=== PATIENT | female | born 1950 | race Caucasian/White ===

== ENCOUNTER 2017-02-24 15:47 | Inpatient (IN) | payer MEDICARE, MEDICAID ==
[~2017-02-24] VITALS: Ht 170.2 cm; Wt 68.0 kg
[~2017-02-24 15:47] MED LIST: BUSP5TAB51 PO; CYCL5TAB PO; DULO60CA PO; ETOD400T PO; FURO40TA4 PO; LUBI24CA6 PO; NOR10T PO; PANT40TA2 PO; SENN-62 PO
[2017-02-24] MEDS ORDERED: SODIUM CHLORIDE 0.9% 1,000 ML IV ONE ×2 (17:11→23:15)
[2017-02-24] MEDS ORDERED: PROMETHAZINE HCL 25 MG/ML 1ML IV ONE (17:15)
[2017-02-24] MEDS ORDERED: MORPHINE SULFATE 4 MG/ML SYRG IV ONE (17:15)
[2017-02-24 17:19] LABS: Basophils # (auto) 0 uL; CONDITION Y; DEFINITIVE SEE PRINTOUT; Eosinophils # (auto) 0 uL; Eosinophils % (auto) 0.3 % (0.0-7.0); Hematocrit 24.6 % (36.0-46.0); Hemoglobin 8.4 g/dL (12.2-16.2); Lymphocytes # (auto) 0.8 uL; Lymphocytes % (auto) 5.6 % (10.0-50.0); Mean Corpuscular Hemoglobin 32.2 pg (28.0-32.0); Mean Corpuscular Hgb Conc. 34.2 g/dL (32.0-36.0); Mean Corpuscular Volume 94.2 fL (80.0-100.0); Mean Platelet Volume 10.2 fL (7.4-10.4); Monocytes # (auto) 1.6 uL; Monocytes % (auto) 10.6 % (0.0-12.0); Neutrophils # (auto) 12.3 uL; Neutrophils % (auto) 83.5 % (37.0-80.0); Platelet Count (auto) 123 10^3/uL (140-450); Red Cell Distribution Width 18.4 % (11.6-16.0); White Blood Cell 14.7 10^3/uL (4.4-10.8)
[2017-02-24 17:44] LABS: Albumin 2.4 g/dL (3.4-5.0); BUN/Creatinine Ratio 29.2; Bilirubin, Total 0.8 mg/dL (0.2-1.0); Potassium 4.7 mmol/L (3.5-5.1); Total Protein 5.6 g/dL (6.4-8.2)
[2017-02-24 19:53] LABS: Urine Bilirubin Negative (Negative); Urine Blood TRACE /uL (Negative); Urine Color Yellow (Yellow); Urine Glucose Normal (Normal); Urine Ketone Negative (Negative); Urine Nitrite Negative (Negative); Urine RBC 1 /hpf (0 - 4); Urine Urobilinogen Normal (Negative); Urine pH 6.5 (5.0-8.0)
[2017-02-24] MEDS ORDERED: PANTOPRAZOLE 80 MG in SODIUM CHL 0.9% 60 ML IV ONE (23:15)
[2017-02-24] MEDS ORDERED: ONDANSETRON HCL 4 MG/2 ML VIAL IV ONE ×2 (23:15)
[2017-02-24] MEDS ORDERED: PANTOPRAZOLE 40 MG/10 ML VIAL IV ONE (23:16)
[2017-02-24 23:20] LABS: Hematocrit 20.4 % (36.0-46.0)
[2017-02-24] MEDS ORDERED: MIDAZOLAM DRIP 50 mg/50mL 50 ML IV ONE (23:22)
[2017-02-24] MEDS ORDERED: KETAMINE HCL 0 ML ONE (23:24)
[2017-02-24 23:28] LABS: Hemoglobin 6.6 g/dL (12.2-16.2)
[2017-02-25] VITALS (13 sets, daily range): BP systolic 53–136; BP diastolic 21–108
[2017-02-25] MEDS ORDERED: MIDAZOLAM DRIP 50 mg/50mL 50 ML IV SCH ×2 (00:14→00:21)
[2017-02-25] MEDS ORDERED: PROPOFOL 100 ML IV SCH (00:21)
[2017-02-25] MEDS ORDERED: NOREPINEPHRINE BITARTRATE 250 ML IV SCH ×2 (00:21→03:15)
[2017-02-25] MEDS ORDERED: MORPHINE SULF INJ 2 MG/ML SYRINGE 1ML IV PRN ×2 (00:30)
[2017-02-25] MEDS ORDERED: HYDROcodone-ACET 5/325MG TAB PO PRN (00:30)
[2017-02-25] MEDS ORDERED: LORazepam 2MG/ML-1ML VIAL IV PRN (00:30)
[2017-02-25] MEDS ORDERED: ACETAMINOPHEN 500 MG TAB PO PRN (00:30)
[2017-02-25] MEDS ORDERED: ONDANSETRON HCL 4 MG/2 ML VIAL IV PRN (00:30)
[2017-02-25] MEDS ORDERED: NITROGLYCERIN 0.4 MG SL TAB SL PRN (00:30)
[2017-02-25] MEDS ORDERED: PIPERACILLIN-TAZOB 3.375GM 100 ML IV ONE (00:45)
[2017-02-25] MEDS ORDERED: SODIUM CHLORIDE 0.9% 1,000 ML IV SCH ×3 (00:45→03:45)
[2017-02-25] MEDS ORDERED: NOREPINEPHRINE BITARTRATE 250 ML IV ONE ×2 (00:53→04:16)
[2017-02-25] MEDS ORDERED: ALBUTEROL SULF 2.5 MG/0.5ML(0.5%) NEB SOLN NEB PRN ×2 (02:00)
[2017-02-25] MEDS ORDERED: DOPamine 1600MCG/ML 250 ML IV SCH (03:15)
[2017-02-25] MEDS ORDERED: PHENYLEPHRINE IV 250 ML IV ONE (03:36)
[2017-02-25] MEDS ORDERED: SODIUM CHLORIDE 0.9% 1,000 ML IV ONE (03:45)
[2017-02-25] MEDS ORDERED: PHENYLEPHRINE INJ 20 MG in SODIUM CHL 0.9% 250 ML IV SCH (03:45)
[2017-02-25] MEDS ORDERED: EPINEPHrine HCL 1 MG/10 ML SYRG ONE (04:56)
[2017-02-25] MEDS ORDERED: PIPERACILLIN-TAZOB 3.375GM 100 ML IV SCH (06:00)
[2017-02-25] MEDS ORDERED: IPRATROPIUM BROM 0.5 MG/2.5ML INH SOL NEB SCH (06:00)
[2017-02-25] MEDS ORDERED: ALBUTEROL SULF 2.5 MG/0.5ML(0.5%) NEB SOLN NEB SCH (06:00)
[2017-02-25] MEDS ORDERED: PANTOPRAZOLE 40 MG/10 ML VIAL IV SCH (10:00)
[2017-02-25] MEDS ORDERED: ATROPINE SULF 0.5 MG/5ML SYR IV ONE (10:57)
[2017-02-25] MEDS ORDERED: DOPamine 1600MCG/ML 400MG/250ML PREMIX BAG IV ONE (10:57)
[2017-02-25] MEDS ORDERED: EPINEPHrine HCL 1 MG/10 ML SYRG IV ONE (10:57)
== END 2017-02-25 10:58 | disposition expired | DRG 208 ==
LOC: EDBD 15:47 → ER 15:48 → TELE 15:49 → ICU WEST 02-25 01:36
PROVIDERS: ADMIT Nurse Practitioner Family; ATTEND Nurse Practitioner Family
PROC: 5A1935Z Respiratory Ventilation, Less than 24 Consecutive Hours (ICD-10-PCS; principal; 2017-02-25)
PROC: 0BH17EZ Insertion of Endotracheal Airway into Trachea, Via Natural or Artificial Opening (ICD-10-PCS; 2017-02-25)
DX: J96.00 Acute respiratory failure, unspecified whether with hypoxia or hypercapnia (principal); I49.01 Ventricular fibrillation; C78.7 Secondary malignant neoplasm of liver and intrahepatic bile duct; C34.90 Malignant neoplasm of unspecified part of unspecified bronchus or lung; J44.9 Chronic obstructive pulmonary disease, unspecified; K92.2 Gastrointestinal hemorrhage, unspecified; R10.9 Unspecified abdominal pain; I10 Essential (primary) hypertension; E11.9 Type 2 diabetes mellitus without complications; K21.9 Gastro-esophageal reflux disease without esophagitis; G89.29 Other chronic pain; M54.9 Dorsalgia, unspecified; I25.10 Atherosclerotic heart disease of native coronary artery without angina pectoris; F41.9 Anxiety disorder, unspecified; F41.0 Panic disorder [episodic paroxysmal anxiety]; E78.5 Hyperlipidemia, unspecified; Z51.5 Encounter for palliative care; Z87.11 Personal history of peptic ulcer disease; Z88.8 Allergy status to other drugs, medicaments and biological substances; Z85.41 Personal history of malignant neoplasm of cervix uteri; Z82.49 Family history of ischemic heart disease and other diseases of the circulatory system
CPT/HCPCS: 36415; 36430; 36600; 51702; 71010; 80053; 81001; 82805; 82962; 83735; 83880; 84443; 85014; 85018; 85025; 86850; 86900; 86901; 86920; 87070; 87205; 93005; 94002; 96365; 96367; 96375; C9113; J0461; J2250